=== PATIENT | male | born 1955 ===

== ENCOUNTER 2020-02-26 20:47 | Emergency (ER) | payer MEDICARE | END 2020-02-26 22:00 | disposition left against medical advice (07) | LOC: ED 20:47 | DX: R07.89 Other chest pain (principal); R05 Cough; Z53.21 Procedure and treatment not carried out due to patient leaving prior to being seen by health care provider ==

== ENCOUNTER 2021-01-29 13:45 | Emergency (ER) | payer MEDICARE ==
[2021-01-29] MEDS ORDERED: TETANUS,DIPH,PERTUSS(ACELL) VACCINE 0.5 ML SYRINGE IM ONE (15:11)
[2021-01-29] MEDS ORDERED: NEOMY 3.5 MG/BACIT 400 UNITS/POLY B 5000 UNITS/GM OINT PACKET TP ONE (15:11)
[2021-01-29] MEDS ORDERED: HYDROcodone/ACETAMINOPHEN 5-325 MG TAB PO ONE (15:11)
--- NOTE | 2021-01-29 15:48 | XRay Report ---
XR clavicle LT INDICATION / CLINICAL INFORMATION: fall from ladder, left clavicle pain. COMPARISON: None available. FINDINGS: BONES/JOINT(S): No acute fracture or subluxation. Mild DJD in the AC joint. SOFT TISSUES: No significant abnormality. ADDITIONAL FINDINGS: None. Signer Name: Juventino Velasquez MD Signed: 01/29/2021 3:44 PM Workstation Name: [id number]
--- NOTE | 2021-01-29 17:13 | Cat Scan Report ---
CT CERVICAL SPINE WITHOUT CONTRAST INDICATION / CLINICAL INFORMATION: fall from ladder, neck. TECHNIQUE: Axial CT images were obtained through the cervical spine. Sagittal and coronal reformatted images wer e produced. All CT scans at this location are performed using CT dose reduction for ALARA by means of automated exposure control. COMPARISON: None available. FINDINGS: ALIGNMENT: No significant abnormality. There is no indication of traumatic subluxation. VERTEBRAE: No evidence of fracture or bone destruction. DISC SPACES: Loss of disc height is noted at the C6-7 level. DEGENERATIVE CHANGES: Left worse than right facet arthropathy is noted at the C5-6 level. Right worse than left this contributes to mild left-sided C6 left facet arthropathy is demonstrated at the C6-7 level. CRANIOCERVICAL JUNCTION:No significant abnormality. SPINAL CANAL: Central spinal canal is adequately maintained throughout. PARASPINAL SOFT TISSUES: No significant abnormality. ADDITIONAL FINDINGS: None. LUNG APICES: Please refer to CT chest dictated separately. IMPRESSION: 1. No indication of fracture or traumatic subluxation. Signer Name: Darnell Hayward MD Signed: 01/29/2021 5:08 PM Workstation Name: [id number]
--- NOTE | 2021-01-29 17:23 | Cat Scan Report ---
CT CHEST WITHOUT CONTRAST INDICATION / CLINICAL INFORMATION: fall from ladder, left chest pain, SOB. TECHNIQUE: Axial CT images were obtained through the chest without contrast. All CT scans at this location are p erformed using CT dose reduction for ALARA by means of automated exposure control. COMPARISON: None available. FINDINGS: HEART: No significant abnormality. THORACIC AORTA: No significant abnormality. MEDIASTINUM and BETZAIDA: No significant abnormality. LUNGS: No acute air space or interstitial disease. PLEURA: No significant pleural effusion. No pneumothorax. ADDITIONAL FINDINGS: None. UPPER ABDOMEN: No significant abnormality. 2.8 cm cyst right hepatic dome. SKELETAL SYSTEM: No significant abnormality. IMPRESSION: 1. No significant abnormality. Signer Name: Andrae Grayson MD Signed: 01/29/2021 5:18 PM Workstation Name: [id number]
--- NOTE | 2021-01-29 17:31 | Emergency Department Report ---
ED Fall HPI - General Chief Complaint: Fall Stated Complaint: fall Time Seen by Provider: 01/29/21 15:01 Source: patient Mode of arrival: Stretcher - History of Present Illness Initial Comments: Patient is a 65-year-old male presents emergency room with points of a fall that occurred just prior to arrival. Patient states that he was hanging up a light fixture and was standing up on a stepladder. He states that the step broke which caused him to fall. He states he was up approximately 1 or 2 feet. He is complaining of left-sided neck pain, left collarbone pain, left-sided chest pain. He denies hitting his head, loss of consciousness, vomiting, vision changes, numbness, weakness, bowel or bladder incontinence, any other injury. He does have a skin tear to the left lower leg but denies any leg pain. He is unsure of his last tetanus immunization. Patient states that he is on anticoagulants. No allergies to medications - Related Data Previous Rx's Medication Instructions Recorded Last Taken Type Acetaminophen [Tylenol] 650 mg PO Q8HR PRN #20 capsule 01/29/21 Unknown Rx traMADoL [Ultram 50 MG tab] 50 mg PO Q6HR PRN #12 tablet 01/29/21 Unknown Rx Allergies Allergy/AdvReac Type Severity Reaction Status Date / Time No Known Allergies Allergy Unverified 01/29/21 14:14 ED Review of Systems ROS: Stated complaint: fall Other details as noted in HPI Comment: All other systems reviewed and negative ED Past Medical Hx - Past Medical History Hx Hypertension: Yes Hx Diabetes: Yes Hx Arthritis: Yes - Medications Home Medications: Home Medications Medication Instructions Recorded Confirmed Last Taken Type Acetaminophen [Tylenol] 650 mg PO Q8HR PRN #20 capsule 01/29/21 Unknown Rx traMADoL [Ultram 50 MG tab] 50 mg PO Q6HR PRN #12 tablet 01/29/21 Unknown Rx ED Physical Exam - General Limitations: No Limitations General appearance: alert, in no apparent distress - Head Head exam: Present: atraumatic, normocephalic - Eye Eye exam: Present: normal appearance. Absent: periorbital swelling, periorbital tenderness - ENT ENT exam: Present: mucous membranes moist - Neck Neck exam: Present: normal inspection, tenderness (left cervical paraspinal ttp, no midline c-spine ttp, no step offs, no deformities), full ROM. Absent: meningismus - Respiratory Respiratory exam: Present: normal lung sounds bilaterally, chest wall tenderness (left sided chest wall ttp, no crepitus, no deformity, no ecchymosis). Absent: respiratory distress, wheezes, rales, rhonchi, stridor, accessory muscle use, decreased breath sounds, prolonged expiratory - Cardiovascular Cardiovascular Exam: Present: regular rate, normal rhythm, normal heart sounds. Absent: systolic murmur, diastolic murmur, rubs, gallop - GI/Abdominal GI/Abdominal exam: Present: soft, normal bowel sounds. Absent: distended, tenderness, guarding, rebound, rigid - Extremities Exam Extremities exam: Present: other (ttp to the left clavicular region, FROM of the LUE, clavicles are equal, no sulcus sign, neurovascularly intact, small superficial skin tear present to the left anterior fleming, no bony ttp of the LLE, neurovascularly intact) - Back Exam Back exam: Present: normal inspection, full ROM. Absent: paraspinal tenderness, vertebral tenderness - Neurological Exam Neurological exam: Present: alert, oriented X3, CN II-XII intact, normal gait. Absent: motor sensory deficit - Psychiatric Psychiatric exam: Present: normal affect, normal mood - Skin Skin exam: Present: warm, dry ED Course Vital Signs 01/29/21 01/29/21 01/29/21 14:11 16:10 16:26 Temperature 98.6 F Pulse Rate 68 69 Respiratory 14 13 Rate Blood Pressure 156/86 144/108 [Left] O2 Sat by Pulse 98 98 97 Oximetry 01/29/21 17:52 Temperature Pulse Rate 71 Respiratory 16 Rate Blood Pressure 146/73 [Left] O2 Sat by Pulse 97 Oximetry ED Medical Decision Making - EKG Data EKG shows normal: sinus rhythm, axis, intervals, QRS complexes, ST-T waves Rate: normal - Radiology Data Radiology results: report reviewed Ordering Physician: GAVINO KONG Date of Service: 01/29/21 Procedure(s): XR clavicle LT Accession Number(s): [id number] cc: GAVINO KONG Fluoro Time In Minutes: XR clavicle LT INDICATION / CLINICAL INFORMATION: fall from ladder, left clavicle pain. COMPARISON: None available. FINDINGS: BONES/JOINT(S): No acute fracture or subluxation. Mild DJD in the AC joint. SOFT TISSUES: No significant abnormality. ADDITIONAL FINDINGS: None. Signer Name: Juventino Velasquez MD Signed: 01/29/2021 3:44 PM Workstation Name: [id number] Transcribed By: CHERYL Dictated By: Juventino Velasquez MD Electronically Authenticated By: Juventino Velasquez MD Signed Date/Time: 01/29/21 1544 DD/ 1543 TD/TT: Ordering Physician: GAVINO KONG Date of Service: 01/29/21 Procedure(s): CT cervical spine wo con Accession Number(s): [id number] cc: GAVINO KONG CT CERVICAL SPINE WITHOUT CONTRAST INDICATION / CLINICAL INFORMATION: fall from ladder, neck. TECHNIQUE: Axial CT images were obtained through the cervical spine. Sagittal and coronal reformatted images were produced. All CT scans at this location are performed using CT dose reduction for ALARA by means of automated exposure control. COMPARISON: None available. FINDINGS: ALIGNMENT: No significant abnormality. There is no indication of traumatic subluxation. VERTEBRAE: No evidence of fracture or bone destruction. DISC SPACES: Loss of disc height is noted at the C6-7 level. DEGENERATIVE CHANGES: Left worse than right facet arthropathy is noted at the C5-6 level. Right worse than left this contributes to mild left-sided C6 left facet arthropathy is demonstrated at the C6-7 level. CRANIOCERVICAL JUNCTION:No significant abnormality. SPINAL CANAL: Central spinal canal is adequately maintained throughout. PARASPINAL SOFT TISSUES: No significant abnormality. ADDITIONAL FINDINGS: None. LUNG APICES: Please refer to CT chest dictated separately. IMPRESSION: 1. No indication of fracture or traumatic subluxation. Signer Name: Darnell Hayward MD Signed: 01/29/2021 5:08 PM Workstation Name: [id number] Transcribed By: Dictated By: Darnell Hayward MD Electronically Authenticated By: Darnell Hayward MD Signed Date/Time: 01/29/21 1708 DD/ 02 TD/TT: Ordering Physician: GAVINO KONG Date of Service: 01/29/21 Procedure(s): CT chest wo con Accession Number(s): [id number] cc: GAVINO KONG CT CHEST WITHOUT CONTRAST INDICATION / CLINICAL INFORMATION: fall from ladder, left chest pain, SOB. TECHNIQUE: Axial CT images were obtained through the chest without contrast. All CT scans at this location are performed using CT dose reduction for ALARA by means of automated exposure control. COMPARISON: None available. FINDINGS: HEART: No significant abnormality. THORACIC AORTA: No significant abnormality. MEDIASTINUM and BETZAIDA: No significant abnormality. LUNGS: No acute air space or interstitial disease. PLEURA: No significant pleural effusion. No pneumothorax. ADDITIONAL FINDINGS: None. UPPER ABDOMEN: No significant abnormality. 2.8 cm cyst right hepatic dome. SKELETAL SYSTEM: No significant abnormality. IMPRESSION: 1. No significant abnormality. Signer Name: Andrae Grayson MD Signed: 01/29/2021 5:18 PM Workstation Name: [id number] Transcribed By: SAAD Dictated By: Andrae Grayson MD Electronically Authenticated By: Andrae Grayson MD Signed Date/Time: 01/29/211717 DD/ 15 TD/TT: - Medical Decision Making Patient is a 65-year-old male presents emergency room with points of a fall that occurred just prior to arrival. Patient states that he was hanging up a light fixture and was standing up on a stepladder. He states that the step broke which caused him to fall. He states he was up approximately 1 or 2 feet. He is complaining of left-sided neck pain, left collarbone pain, left-sided chest pain. He denies hitting his head, loss of consciousness, vomiting, vision changes, numbness, weakness, bowel or bladder incontinence, any other injury. He does have a skin tear to the left lower leg but denies any leg pain. He is unsure of his last tetanus immunization. Patient states that he is on anticoagulants. No allergies to medications. Vitals are stable. On exam:left cervical paraspinal ttp, no midline c-spine ttp, no step offs, no deformities, left sided chest wall ttp, no crepitus, no deformity, no ecchymosis, ttp to the left clavicular region, FROM of the LUE, clavicles are equal, no sulcus sign, neurovascularly intact, small superficial skin tear present to the left anterior fleming, no bony ttp of the LLE, neurovascularly intact. X-ray left clavicle BONES/JOINT(S): No acute fracture or subluxation. Mild DJD in the AC joint. SOFT TISSUES: No significant abnormality. ADDITIONAL FINDINGS: None. CT cervical spine 1. No indication of fracture or traumatic subluxation. CT chest without contrast 1. No significant abnormality. EKG is within normal limits. Patient given medication in the emergency room with improvement of his symptoms. Discussed all findings with patient. Discussed the importance of primary care follow-up. Discussed return precautions. Advised patient Please take medication as prescribed as needed. Follow-up with primary care doctor. Return to emergency room for new or worsening symptoms. Critical care attestation.: If time is entered above; I have spent that time in minutes in the direct care of this critically ill patient, excluding procedure time. ED Disposition Clinical Impression: Chest wall pain, Clavicle pain, Neck pain, Skin tear Fall Qualifiers: Encounter type: initial encounter Qualified Code(s): W19.XXXA - Unspecified fall, initial encounter Disposition: HOME / SELF CARE / HOMELESS Is pt being admited?: No Does the pt Need Aspirin: No Condition: Stable Instructions: Musculoskeletal Pain, Chest Wall Pain Additional Instructions: Please take medication as prescribed as needed. Follow-up with primary care doctor. Return to emergency room for new or worsening symptoms. Prescriptions: Acetaminophen [Tylenol] 650 mg PO Q8HR PRN #20 capsule PRN Reason: Pain, Moderate (4-6) traMADoL [Ultram 50 MG tab] 50 mg PO Q6HR PRN #12 tablet PRN Reason: Pain , Severe (7-10) Referrals: PRIMARY CARE, [Primary Care Provider] - 2-3 Days Time of Disposition: 17:32 Print Language: MALAY
[2021-01-29 17:53] VITALS: BP 146/73
--- NOTE | 2021-02-02 12:09 | Electrocardiograph Report ---
[facility] Test Date: 2021-01-29 Test Time: 14:56:53 Pat Name: KAPIL CHAVEZ Department: Room: Gender: M [employer] Instructor: JOCELYNN : 1955 Requested By: CHUY TILLMAN Order Number: [id number] Reading MD: Will Healy Measurements Intervals [place] Rate: 61 P: 44 TX: 159 QRS: 42 QRSD: 95 T: 5 QT: 393 QTc: 395 Interpretive Statements Sinus rhythm No previous ECG available for comparison Electronically Signed On 02-02-2021 12:09:25 EST by Will Healy
== END 2021-01-29 17:53 | disposition home or self-care (01) ==
LOC: ED 13:45
DX: S81.812A Laceration without foreign body, left lower leg, initial encounter (principal); R07.89 Other chest pain; M54.2 Cervicalgia; I10 Essential (primary) hypertension; E11.9 Type 2 diabetes mellitus without complications; M19.90 Unspecified osteoarthritis, unspecified site; W18.39XA Other fall on same level, initial encounter; Y93.89 Activity, other specified; Y92.89 Other specified places as the place of occurrence of the external cause; Y99.8 Other external cause status
CPT/HCPCS: 71250; 72125; 93005; 99284